=== PATIENT | female | born 1960 | race Caucasian/White ===

== ENCOUNTER → 2017-10-17 | Outpatient (CLI) | payer OTHER ==
--- NOTE | 2017-10-17 17:22 | BD ---
EXAMINATION TYPE: Axial Bone Density DATE OF EXAM: 10/17/2017 COMPARISON: NONE CLINICAL HISTORY: 56 YR OLD FEMALE....ICD-10 CODE: Z13.820 SCREENING FOR OSTEOPOROSIS Height: 66 Weight: 133 FRAX RISK QUESTIONS: History of Fracture in Adulthood: YES RISK FACTORS HISTORY OF: HX OF FOOT FX AFTER AGE OF 49 Family History of Osteoporosis: PATERNAL SIDE OF FAMILY, NO KNOWN HIP FXs Active: YES Diet low in dairy products/other sources of calcium: NO Postmenopausal woman: YES AT AGE 52 Lost more than 2 inches in height since high school: YES MEDICATIONS: Additional Medications: CALCIUM WITH VIT D Additional History: NONE TO NOTE EXAM MEASUREMENTS: Bone mineral densitometry was performed using the [employer] System. Bone mineral density as measured about the Lumbar spine is: ----- L1-L4(G/cm2): 0.950 T Score Values are as follows: ----- L1: -2.3 ----- L2: -2.1 ----- L3: -1.5 ----- L4: -2.0 ----- L1-L4: -1.9 Bone mineral density FIRST BONE DENSITY STUDY.....BASELINE Bone mineral density about the R hip (g/cm2): 0.730 Bone mineral density about the L hip (g/cm2): 0.704 T Score values are as follows: -----R Neck: -1.9 -----L Neck: -2.1 -----R Total: -2.2 -----L Total: -2.4 Bone mineral density BASELINE STUDY FRAX%s: THERE IS A 14.9% CHANCE OF A MAJOR OSTEOPOROTIC FX AND A 2.4% FOR A HIP FX......PROBABILI TY OF FX IN 10 YRS TIME IMPRESSION: Osteopenia (T Score between -2.5 and -1). There is slightly increased risk of fracture and the patient may be considered for treatment. Re-Screen 2-5 years. NOTE: T-SCORE=SD OF THE YOUNG ADULT MEAN.
== END | disposition home or self-care (01) ==
LOC: RADBDWWP 14:15
PROVIDERS: ATTEND Obstetrics & Gynecology
DX: M85.80 Other specified disorders of bone density and structure, unspecified site (principal); Z78.0 Asymptomatic menopausal state
CPT/HCPCS: 77080

== ENCOUNTER 2018-01-04 17:26 | Emergency (ER) | payer OTHER ==
[2018-01-04 17:38] VITALS: BP 145/83; PULSE 81; RESP 20; TEMP 98.4
--- NOTE | 2018-01-04 17:54 | ED ---
General Adult HPI - General Chief complaint: Wound/Laceration Stated complaint: IHS - scratch Time Seen by Provider: 01/04/18 17:30 Source: patient, RN notes reviewed Mode of arrival: ambulatory Limitations: no limitations - History of Present Illness Initial comments: This a 57-year-old female who presents to the emergency department with 3 superficial scratches from a child at work. Patient has no complaint other than she is here because her boss made her come in and get a documented. Patient has a very small superficial laceration to the lateral lower left lip and 2 superficial lacerations to the right wrist one on the dorsal service one on the palmar surface. Patient has no complaints patient is not complaining of any pain patient states she's had a tetanus in October. Patient is not requesting us to do anything at this time. - Related Data Allergies Allergy/AdvReac Type Severity Reaction Status Date / Time Sulfa (Sulfonamide Allergy Unknown Verified 01/04/18 17:38 Antibiotics) Review of Systems ROS Statement: Those systems with pertinent positive or pertinent negative responses have been documented in the HPI. ROS Other: All systems not noted in ROS Statement are negative. Past Medical History Past Medical History: No Reported History History of Any Multi-Drug Resistant Organisms: None Reported Additional Past Surgical History / Comment(s): cyst removal, varicose vein stripping Past Psychological History: No Psychological Hx Reported Smoking Status: Never smoker Past Alcohol Use History: None Reported Past Drug Use History: None Reported General Exam - General Exam Comments Initial Comments: GENERAL Patient is well-developed and well-nourished. Patient is in no acute distress. EYES Patient's pupils are equal and round. Extraocular motion is intact SKIN Unremarkable NEURO The patient is alert and oriented 3 PYSCH Patient has normal interpersonal interactions. MUSCULOSKELETAL Small less than half a centimeter superficial abrasion to the lateral aspect of the lower lip and 2 similar lacerations to the right wrist one on the anterior surface on the palmar surface. Limitations: no limitations Course Vital Signs 01/04/18 17:36 Temperature 98.4 F Pulse Rate 81 Respiratory 20 Rate Blood Pressure 145/83 O2 Sat by Pulse 100 Oximetry Disposition Clinical Impression: Superficial abrasion Disposition: HOME SELF-CARE Condition: Good Instructions: Abrasion (ED) Additional Instructions: Applied bacitracin or Neosporin twice a day Is patient prescribed a controlled substance at d/c from ED?: No Referrals: Dorothea Rabago MD [Primary Care Provider] - 1-2 days Time of Disposition: 17:53
== END 2018-01-04 18:12 | disposition home or self-care (01) ==
LOC: EC 17:26
DX: S61.511A Laceration without foreign body of right wrist, initial encounter (principal); S00.511A Abrasion of lip, initial encounter; Z88.2 Allergy status to sulfonamides; W50.4XXA Accidental scratch by another person, initial encounter; Y92.69 Other specified industrial and construction area as the place of occurrence of the external cause; Y99.0 Civilian activity done for income or pay
CPT/HCPCS: 99282

== ENCOUNTER 2018-03-05 16:33 | Emergency (ER) | payer OTHER ==
[2018-03-05 16:37] VITALS: RESP 18
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
[2018-03-05 17:30] VITALS: BP 120/78; PULSE 74; TEMP 97.7
== END 2018-03-05 17:28 | disposition home or self-care (01) ==
LOC: EC 16:33
DX: S09.90XA Unspecified injury of head, initial encounter (principal); Z79.899 Other long term (current) drug therapy; Z88.2 Allergy status to sulfonamides; Z53.29 Procedure and treatment not carried out because of patient's decision for other reasons; W20.8XXA Other cause of strike by thrown, projected or falling object, initial encounter; Y92.218 Other school as the place of occurrence of the external cause; Y99.0 Civilian activity done for income or pay
CPT/HCPCS: 99283

== ENCOUNTER → 2018-06-12 | Outpatient (CLI) | payer BC ==
--- NOTE | 2018-06-13 07:44 | MM ---
Reason for exam: additional evaluation requested from prior study. Last mammogram was performed 17 years and 9 months ago. History: Patient is postmenopausal. Physical Findings: Nurse did not find any significant physical abnormalities on exam. MG Diagnostic Mammo w CAD SILKE Bilateral CC and MLO view(s) were taken. No prior studies available for comparison. The breast tissue is extremely dense which could obscure a lesion on mammography. No suspicious abnormality on the right. Left focal asymmetry at 11 o'clock 1.6cm from nipple corresponds to the ultrasound finding. These results were verbally communicated with the patient and result sheet given to the patient on 06/12/18. ASSESSMENT: Suspicious, BI-RAD 4 RECOMMENDATION: Ultrasound core biopsy of the left breast. Called Dr. Rabago with mammographic findings and has scheduled an appointment for the patient for 07/12/17 at 10:[address] Quezada. Biopsy scheduled for 06/15/18 at 10:00. PRELIMINARY REPORT CALLED AND FAXED TO DR. QUEZADA ON 06/13/18.
--- NOTE | 2018-06-13 07:47 | USB ---
Reason for exam: clinical finding. History: Patient is postmenopausal. US Breast LT Left complete breast ultrasound includes all four quadrants, the retroareolar region and axilla. Finding demonstrates a 6 x 1 x 5mm oval, cystic, benign lesion at 2 o'clock, a 3 x 2 x 3mm hypoechoic lesion at 11 o'clock after real time scanning, this mass has irregular margins, no increase through transmission and peripheral vascular flow, biopsy recommended and a 7 x 7mm oval lymph node at the axilla, morphologically normal. These results were verbally communicated with the patient and result sheet given to the patient on 06/12/18. ASSESSMENT: Suspicious, BI-RAD 4 RECOMMENDATION: Ultrasound core biopsy of the left breast. Called Dr. Rabago with mammographic findings and has scheduled an appointment for the patient for 07/12/17 at 10:[address] Quezada. Biopsy scheduled for 06/15/18 at 10:00. PRELIMINARY REPORT CALLED AND FAXED TO DR. QUEZADA ON 06/13/18.
== END | disposition home or self-care (01) ==
LOC: RADMAMWWP 13:34
PROVIDERS: ATTEND Family Medicine
DX: R22.32 Localized swelling, mass and lump, left upper limb (principal)
CPT/HCPCS: 77066

== ENCOUNTER → 2018-06-15 | Day surgery (SDC) | payer BC ==
[2018-06-15 09:16] VITALS: RESP 16
[2018-06-15 10:37] VITALS: BP 122/72; PULSE 73; TEMP 99.6
--- NOTE | 2018-06-15 12:46 | USB ---
EXAMINATION TYPE: US biopsy breast VAD LT, MG diagnostic mammo LT wo CAD DATE OF EXAM: 06/15/2018 CLINICAL HISTORY: R98.2 ABN TALYA. TECHNIQUE: Ultrasound guided core biopsy of left breast. COMPARISON: 06/12/2018 FINDINGS: The procedure of ultrasound guided core biopsy was explained to the patient. Benefits, alternatives, and risks were discussed. An informed consent was then obtained. Preprocedural timeout was performed The patient was placed in supine positioning for imaging and for the procedure. The overlying skin was prepped and draped in usual sterile fashion. 10 cc of lidocaine buffered with bicarbonate was used as anesthetic into the skin and subcutaneous tissue as well as 10 cc of lidocaine with epinephrine in the subcutaneous tissues up to a 3 x 2 x 3 mm mass at the 11:00 position within the left breast. Under ultrasound guidance, a 12-gauge vacuum assisted biopsy gun device was used to obtain 3 core samples. Following this, a coil-shaped biopsy marker was left at the site of biopsy. The patient tolerated the procedure well without any immediate complication. The patient was kept in the radiology department for short stay after the procedure and then discharged home in stable condition. Postprocedural mammogram demonstrates marker placement at the focal asymmetry seen on the mammogram of 06/12/2018. IMPRESSION: Successful, uncomplicated ultrasound guided core biopsy of 3 x 2 x 3 mm mass corresponding to the mammographic focal asymmetry in the left breast, full pathology results to follow. Pathology Results: Benign CORE BIOPSY, LEFT BREAST: Cystic non-proliferative changes: duct ectasia and lobular dilatation with stromal hyalinization. Recommendation Follow up ultrasound of the left breast in 6 months. RADHA
== END ==
LOC: RADUSWWP 09:06
PROVIDERS: ATTEND Surgery
DX: N60.42 Mammary duct ectasia of left breast (principal); R92.8 Other abnormal and inconclusive findings on diagnostic imaging of breast; Z88.2 Allergy status to sulfonamides
CPT/HCPCS: 88305; 77065; 19083; A4648; J2001

== ENCOUNTER 2018-07-09 10:38 | Emergency (ER) | payer BC, OTHER ==
[2018-07-09 11:19] VITALS: BP 134/84; PULSE 82; RESP 16; TEMP 99
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
== END 2018-07-09 12:42 | disposition home or self-care (01) ==
LOC: EC 10:38
DX: S71.152A Open bite, left thigh, initial encounter (principal); Z98.890 Other specified postprocedural states; Z79.899 Other long term (current) drug therapy; Z88.2 Allergy status to sulfonamides; W50.3XXA Accidental bite by another person, initial encounter; Y92.69 Other specified industrial and construction area as the place of occurrence of the external cause; Y99.0 Civilian activity done for income or pay
CPT/HCPCS: 99283

== ENCOUNTER → 2018-12-19 | Outpatient (CLI) | payer BC ==
--- NOTE | 2018-12-20 10:49 | MM ---
Reason for exam: follow-up at short interval from prior study. Last mammogram was performed 6 months ago. History: Patient is postmenopausal. Benign US biopsy breast VAD LT of the left breast, June 15, 2018. Physical Findings: Nurse did not find any significant physical abnormalities on exam. MG Diagnostic Mammo LT w CAD CC, MLO, and LM view(s) were taken of the left breast. Prior study comparison: June 15, 2018, left breast MG diagnostic mammo LT wo CAD. June 12, 2018, bilateral MG diagnostic mammo w CAD SILKE. The breast tissue is heterogeneously dense. This may lower the sensitivity of mammography. Previous mammotome biopsy in the left breast. There is no discrete abnormality. This finding is changed when compared with previous exams. These results were verbally communicated with the patient and result sheet given to the patient on 12/19/18. ASSESSMENT: Incomplete: need additional imaging evaluation, BI-RAD 0 RECOMMENDATION: Ultrasound of the left breast.
--- NOTE | 2018-12-20 10:50 | USB ---
Reason for exam: follow-up at short interval from prior study. History: Patient is postmenopausal. Benign US biopsy breast VAD LT of the left breast, June 15, 2018. US Breast LT Left complete breast ultrasound includes all four quadrants, the retroareolar region and axilla. Finding demonstrates a 7 x 2 x 5mm oval, cystic lesion at 2 o'clock, a 3 x 2 x 3mm oval, cystic lesion at 3 o'clock and a 8mm oval lymph node at the axilla tail. These results were verbally communicated with the patient and result sheet given to the patient on 12/19/18. ASSESSMENT: Benign, BI-RAD 2 RECOMMENDATION: Routine screening mammogram of both breasts in 6 months.
== END | disposition home or self-care (01) ==
LOC: RADMAMWWP 13:44
PROVIDERS: ATTEND Surgery
DX: R92.8 Other abnormal and inconclusive findings on diagnostic imaging of breast (principal)
CPT/HCPCS: 77065

== ENCOUNTER → 2020-11-12 | Outpatient (CLI) | payer BC ==
--- NOTE | 2020-11-16 12:25 | MM ---
Reason for exam: screening (asymptomatic). Last mammogram was performed 1 year and 11 months ago. History: Patient is postmenopausal. Benign US biopsy breast VAD LT of the left breast, June 15, 2018. Physical Findings: A clinical breast exam by your physician is recommended on an annual basis and results should be correlated with mammographic findings. MG Screening Mammo w CAD Bilateral CC and MLO view(s) were taken. Prior study comparison: December 19, 2018, left breast MG diagnostic mammo LT w CAD. June 15, 2018, left breast MG diagnostic mammo LT wo CAD. June 12, 2018, bilateral MG diagnostic mammo w CAD SILKE. The breast tissue is heterogeneously dense. This may lower the sensitivity of mammography. No significant changes when compared with prior studies. ASSESSMENT: Benign, BI-RAD 2 RECOMMENDATION: Routine screening mammogram of both breasts in 1 year.
== END | disposition home or self-care (01) ==
LOC: RADMAMWWP 15:37
PROVIDERS: ATTEND Obstetrics & Gynecology
DX: Z12.31 Encounter for screening mammogram for malignant neoplasm of breast (principal); Z78.0 Asymptomatic menopausal state
CPT/HCPCS: 77067

== ENCOUNTER → 2022-11-09 | Outpatient (CLI) | payer BC ==
--- NOTE | 2022-11-09 23:22 | BD ---
EXAMINATION TYPE: Axial Bone Density DATE OF EXAM: 11/09/2022 CLINICAL HISTORY: 61 years old Female. ICD-10 CODE: M85.88 OSTEOPENIA Height: 5 ft 6 1/2 in Weight: 132 FRAX RISK QUESTIONS: Alcohol (3 or more units per day): no Family History (Parent hip fracture): no Glucocorticoids (More than 3mos): no (Ex: prednisone, prednisolone, methylprednisolone, dexamethasone, and hydrocortisone). History of Fracture in Adulthood: yes Secondary Osteoporosis: 1. Type 1 Diabetes: no 2. Hyperthyroidism: no 3. Menopause before 45: no 4. Malnutrition: no 5. Chronic liver disease: no Rheumatoid Arthritis: no Current Tobacco Use: no RISK FACTORS HISTORY OF: Surgery to Spine/Hip(right/left)/Wrist (right/left): no Family History of Osteoporosis: no Active: yes Diet low in dairy products/other sources of calcium: no Postmenopausal woman: yes Take estrogen and/or progesterone medications: no Lost more than 2 inches in height since high school: no Frequent falls: no Poor Health: good Hyperparathyroidism: no Adrenal Insufficiency: no MEDICATIONS: Additional Medications: statin Additional History: EXAM MEASUREMENTS: Bone mineral densitometry was performed using the [employer] System. Bone mineral density as measured about the Lumbar spine is: ----- L1-L4(G/cm2): 0.886 T Score Values are as follows: ----- L1: -3.1 ----- L2: -3.4 ----- L3: -2.2 ----- L4: -1.6 ----- L1-L4: -2.4 Z Score Values are as follows: ----- L1: -1.5 ----- L2: -1.8 ----- L3: -0.6 ----- L4: -0.1 ----- L1-L4: -0.9 Bone mineral density has: decreased -6.7 % since study of: 2018 Bone mineral density about the R hip (g/cm2): 0.700 Bone mineral density about the L hip (g/cm2): 0.716 T Score values are as follows: -----R Neck: -2.4 -----L Neck: -2.3 -----R Total: -2.5 -----L Total: -2.6 Z Score values are as follows: -----R Neck: -1.0 -----L Neck: -0.8 -----R Total: -1.3 -----L Total: -1.5 Bone mineral density has: decreased -4.9 % since study of: 2018 FRAX%s: The graph provided illustrates a 18.5 % chance for a major osteoporotic fx and a 3.9 % chance for the hips probability for fx in 10 years time. IMPRESSION: Osteoporosis (T Score less than -2.5). There is increased fracture risk and therapy is usually indicated based on age. Re-Screen 1-2 years. NOTE: T-SCORE=SD OF THE YOUNG ADULT MEAN.
--- NOTE | 2022-11-10 08:24 | MM ---
Reason for Exam: Screening (asymptomatic). Last mammogram was performed 2 year(s) and 0 month(s) ago. Patient History: Menarche at age 12. First Full-Term at age 27. Postmenopausal. 06/15/2018, Benign Core Biopsy on the left side. Risk Values: Archana 5 year model risk: 2.0%. NCI Lifetime model risk: 9.0%. Prior Study Comparison: 06/15/2018 Left Diagnostic Mammogram, [facility]. 12/19/2018 Left Diagnostic Mammogram, [facility]. 11/12/2020 Bilateral Screening Mammogram, [facility]. Tissue Density: The breast tissue is heterogeneously dense. This may lower the sensitivity of mammography. Findings: Analyzed By CAD. There is no suspicious group of microcalcifications within either breast. Biopsy clip within the left breast. No new suspicious mass within the right breast. Asymmetry demonstrated within the left breast only on the CC view medially at middle to posterior depth with punctate calcification identified. Overall Assessment: Incomplete: need additional imaging evaluation, BI-RAD 0 Management: Diagnostic Mammogram of the left breast. A clinical breast exam by your physician is recommended on an annual basis and results should be correlated with mammographic findings. [facility] will attempt to contact patient to return for supplemental views and ultrasound if indicated. Note on Archana scores and lifetime risk: 1. A Archana score greater than 3% is considered moderate risk. If this is the case, consider specialist referral to assess eligibility for a risk reducing agent. If overall lifetime risk for the development of breast cancer is 20% or higher, the patient may qualify for future screening with alternating mammogram and breast MRI. Electronically signed and approved by: Reinaldo Del Cid D.O.
== END | disposition home or self-care (01) ==
LOC: RADMAMWWP 13:56
PROVIDERS: ATTEND Obstetrics & Gynecology
DX: Z12.31 Encounter for screening mammogram for malignant neoplasm of breast (principal); M81.0 Age-related osteoporosis without current pathological fracture; M85.89 Other specified disorders of bone density and structure, multiple sites; Z78.0 Asymptomatic menopausal state
CPT/HCPCS: 77067; 77080

== ENCOUNTER → 2022-11-11 | Outpatient (CLI) | payer BC ==
--- NOTE | 2022-11-11 11:11 | MM ---
Reason for Exam: Additional evaluation requested from abnormal screening. Last screening mammogram was performed less than 1 month ago. Patient History: Menarche at age 12. First Full-Term at age 27. Postmenopausal. 06/15/2018, Benign Core Biopsy on the left side. Risk Values: Archana 5 year model risk: 2.0%. NCI Lifetime model risk: 9.0%. Prior Study Comparison: 12/19/2018 Left Diagnostic Mammogram, [facility]. 11/12/2020 Bilateral Screening Mammogram, [facility]. 11/09/2022 Bilateral MG screening mammo w CAD, [facility]. Tissue Density: Left: There are scattered fibroglandular densities. Findings: Analyzed By CAD. Area in the left breast compresses out on compression imaging. No suspicious masses. Left breast biopsy clip. No new suspicious masses, calcifications or distortions. Overall Assessment: Benign, BI-RAD 2 Management: Screening Mammogram of both breasts in 1 year. Results were given to the patient verbally at the time of exam. Patient should continue monthly self-breast exams. A clinical breast exam by your physician is recommended on an annual basis. This exam should not preclude additional follow-up of suspicious palpable abnormalities. Note on Archana scores and lifetime risk: 1. A Archana score greater than 3% is considered moderate risk. If this is the case, consider specialist referral to assess eligibility for a risk reducing agent. 2. If overall lifetime risk for the development of breast cancer is 20% or higher, the patient may qualify for future screening with alternating mammogram and breast MRI. Electronically signed and approved by: Pepe Sanchez DO
== END | disposition home or self-care (01) ==
LOC: RADMAMWWP 10:25
PROVIDERS: ATTEND Obstetrics & Gynecology
DX: R92.8 Other abnormal and inconclusive findings on diagnostic imaging of breast (principal); Z78.0 Asymptomatic menopausal state
CPT/HCPCS: 77061; 77065